=== PATIENT | male | born 1990 | race Caucasian/White ===

== ENCOUNTER 2019-10-01 12:01 | Emergency (ER) | payer OTHER ==
[~2019-10-01] VITALS: Ht 180.3 cm; Wt 104.3 kg
[2019-10-01] MEDS ORDERED: KETO10TA2 PO (13:55)
[2019-10-01] MEDS ORDERED: NORFLEX100MG PO (13:55)
== END 2019-10-01 13:59 | disposition home or self-care (01) ==
LOC: ER 12:01
DX: S20.212A Contusion of left front wall of thorax, initial encounter (principal); M54.2 Cervicalgia; R20.0 Anesthesia of skin; R20.2 Paresthesia of skin; V49.88XA Car occupant (driver) (passenger) injured in other specified transport accidents, initial encounter; Y93.89 Activity, other specified; Y92.488 Other paved roadways as the place of occurrence of the external cause; Y99.8 Other external cause status